=== PATIENT | male | born 1945 | race Asian ===

== ENCOUNTER 2016-07-24 23:16 | Emergency (ER) | payer OTHER ==
[~2016-07-24] VITALS: Ht 162.6 cm; Wt 75.0 kg
[2016-07-24] MEDS ORDERED: METO-325 PO (23:25)
[2016-07-24] MEDS ORDERED: PRAV10TA39 PO (23:25)
[2016-07-24] MEDS ORDERED: COLC0.6T69 PO (23:25)
[2016-07-24] MEDS ORDERED: ALLO100T PO (23:25)
[2016-07-24] MEDS ORDERED: CLOP75 PO (23:25)
[2016-07-24] MEDS ORDERED: ASPI-556 PO (23:25)
[2016-07-25 00:40] VITALS: BP 135/88
== END 2016-07-25 00:41 | disposition home or self-care (01) ==
LOC: EMS 23:17
DX: S01.512A Laceration without foreign body of oral cavity, initial encounter (principal); I10 Essential (primary) hypertension; E78.00 Pure hypercholesterolemia, unspecified; Z95.1 Presence of aortocoronary bypass graft; Z79.82 Long term (current) use of aspirin; W45.8XXA Other foreign body or object entering through skin, initial encounter; Y93.89 Activity, other specified; Y92.89 Other specified places as the place of occurrence of the external cause; Y99.8 Other external cause status
CPT/HCPCS: 99283

== ENCOUNTER 2017-08-25 20:43 | Emergency (ER) | payer OTHER ==
[~2017-08-25] VITALS: Ht 162.6 cm; Wt 75.0 kg
[~2017-08-25 20:43] MED LIST: ALLO100T PO; ASPI-556 PO; CLOP75 PO; COLC0.6T67 PO; METO-558 PO; PRAV10TA39 PO
[2017-08-25 21:02] VITALS: BP 125/87
== END 2017-08-25 21:25 | disposition left against medical advice (07) ==
LOC: EMS 20:44
DX: I10 Essential (primary) hypertension (principal); Z53.21 Procedure and treatment not carried out due to patient leaving prior to being seen by health care provider